=== PATIENT | female | born 1990 | race Caucasian/White ===

== ENCOUNTER 2024-04-18 11:10 | Observation (INO) | payer BC, SELFPAY ==
[2024-04-18 11:39] VITALS: BP 119/79; BMI 25.0
== END 2024-04-18 12:35 | disposition home or self-care (01) ==
LOC: LDRP 11:10
PROVIDERS: ADMITTING PHYSICIAN Obstetrics & Gynecology; FAMILY PHYSICIAN Nurse Practitioner Gerontology
DX: O36.8130 Decreased fetal movements, third trimester, not applicable or unspecified (principal); Z3A.31 31 weeks gestation of pregnancy
CPT/HCPCS: 76818; 76805; G0378

== ENCOUNTER 2024-06-22 02:05 | Inpatient (IN) | payer BC, SELFPAY ==
[2024-06-22 02:20] VITALS: BP 135/92; BMI 26.8
[2024-06-22] MEDS: LR 1000 IV ×2 (02:25→03:00)
[2024-06-22 03:00] LABS: Hematocrit 38.7 % (37.0-47.0); Hemoglobin 13.7 g/dL (12.0-16.0); Mean Corp Hgb Conc. 35.4 g/dL (33.0-37.0); Mean Corpuscular Hgb 30.7 pg (27.0-31.0); Mean Corpuscular Volume 86.8 fL (81.0-99.0); Mean Platelet Volume 10.9 fL (7.4-10.4); Platelet Count 230 10^3/uL (130-400); Red Blood Cell Count 4.46 10^6/uL (4.20-5.40); Red Cell Dist. Width 13.4 % (11.5-14.5); White Blood Cell Count 26.8 10^3/uL (4.8-10.8)
[2024-06-22] MEDS: SUBLIMAZE 100 MCG EPIDURAL (03:09)
[2024-06-22] MEDS: FENTANYL/BUPIVACAINE 100 EPIDURAL (03:09)
[2024-06-22 03:32] LABS: % Basophils 0.2 % (0-2); % Eosinophils 0.1 % (0-6); % Immature Granulocytes 0.8 % (0-0.5); % Lymphocytes 8.7 % (20.5-51.1); % Monocytes 6.2 % (1.7-9.3); Absolute Basophils 0.1 10^3/uL (0-0.2); Absolute Immature Granulocytes 0.2 10^3/uL (0-0.05); Absolute Lymphocytes 2.3 10^3/uL (1.2-3.4); Absolute Monocytes 1.7 10^3/uL (0.1-0.6); Absolute Neutrophils 22.6 10^3/uL (1.4-6.5); Nucleated Red Blood Cells % 0 %
[2024-06-22] MEDS: PITOCIN 30 UNITS/NSS 500 ML IV (03:50)
[2024-06-23 05:10] LABS: Hematocrit 35.2 % (37.0-47.0); Hemoglobin 12.2 g/dL (12.0-16.0)
[2024-06-23] MEDS: PRENATAL PLUS 1 TABLET PO (09:32)
[2024-06-23] MEDS: SENOKOT-S 1 TABLET PO (09:32)
== END 2024-06-23 14:20 | disposition home or self-care (01) | DRG 807 ==
LOC: LDRP 02:05
PROVIDERS: Student in an Organized Health Care Education/Training Program; ADMITTING PHYSICIAN Obstetrics & Gynecology; FAMILY PHYSICIAN Nurse Practitioner Gerontology
PROC: 10E0XZZ Delivery of Products of Conception, External Approach (ICD-10-PCS; 2024-06-22)
DX: O48.0 Post-term pregnancy (principal); Z37.0 Single live birth; Z3A.41 41 weeks gestation of pregnancy
CPT/HCPCS: 36415; 85014; 85018; 85025; 86780; 86850; 86900; 86901